=== PATIENT | male | born 1990 | race African-American/Black ===

== ENCOUNTER 2016-10-28 08:25 | Emergency (ER) | payer SELFPAY ==
[2016-10-28 08:37] VITALS: BP 129/55; PULSE 70; TEMP 98; BMI 28.8
--- NOTE | 2016-10-28 08:54 | PDOC ---
History of Present Illness - General Chief Complaint: Back Pain Stated Complaint: LOWER BACK PAIN Time Seen by Provider: 10/28/16 08:34 History Source: Patient Exam Limitations: No Limitations - History of Present Illness Initial Comments: 10/28/16 09:21 Patient came to emergency department complaining of 3 years of low back pain. States was on [employer] and became concerned may have kidney problems. Denies fever , denies pain or burning with urine, denies any bleeding with urine, no history of kidney stones or any urinary problems. Patient states 3 years ago was at the gym and felt by a pulled muscle to his mid low back primary left side and has had persistent and recurrent problems since that time. Has never been evaluated for this pain, has never had numbness or tingling in hands or feet, has never taken any medication for relief of same. 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 and continues to workout at the gym with heavy lifting and weights Occurred: reports: other Severity: reports: mild Pain Location: reports: back Method of Injury: Yes: unknown Modifying Factors: improves with: None Associated Symptoms (Fall): denies symptoms Past History - Travel Traveled outside of the country in the last 30 days: No Close contact w/someone who was outside of country & ill: No - Past Medical History Allergies/Adverse Reactions: Allergies Allergy/AdvReac Type Severity Reaction Status Date / Time No Known Allergies Allergy Verified 10/28/16 08:33 Other medical history: NONE - Psycho/Social/Smoking Cessation Hx Anxiety: No Suicidal Ideation: No Smoking History: Never smoked Hx Alcohol Use: Yes (SOCIAL) Drug/Substance Use Hx: No Substance Use Type: None Trauma Specific PMHX - Complaint Specific PMHX Back Injury: Yes Neck Injury: No Review of Systems - Review of Systems Able to Perform ROS?: Yes Is the patient limited Indonesian proficient: Yes Constitutional: Yes: Symptoms Reported, See HPI, Malaise HEENTM: Yes: See HPI. No: Symptoms Reported Respiratory: No: Symptoms reported Musculoskeletal: Yes: Symptoms Reported, See HPI, Back Pain Integumentary: Yes: See HPI. No: Symptoms Reported Neurological: Yes: See HPI, Weakness. No: Symptoms reported, Headache All Other Systems: Reviewed and Negative *Physical Exam - Vital Signs Last Vital Signs Temp Pulse Resp BP Pulse Ox 98.0 F 70 18 129/55 100 10/28/16 08:26 10/28/16 08:26 10/28/16 08:26 10/28/16 08:26 10/28/16 08:26 - Physical Exam General Appearance: Yes: Nourished, Appropriately Dressed. No: Apparent Distress HEENT: positive: PRISCILA, Normal ENT Inspection, TMs Normal, Pharynx Normal Neck: positive: Supple. negative: Tender Respiratory/Chest: positive: Lungs Clear, Normal Breath Sounds. negative: Chest Tender Gastrointestinal/Abdominal: positive: Soft. negative: Normal Bowel Sounds Musculoskeletal: positive: Normal Inspection. negative: CVA Tenderness, Decreased Range of Motion, Vertebral Tenderness Extremity: positive: Normal Capillary Refill, Normal Inspection. 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 NML intact, Fully Oriented, Alert, Normal Mood/ Affect, Normal Response, Motor Strength /5 Progress Note - Progress Note Progress Note: Mild chronic low back pain, recommend rest, NSAIDs, and follow-up as needed *DC/Admit/Observation/Transfer Diagnosis at time of Disposition: Chronic low back pain Qualifiers: Back pain laterality: left Sciatica presence: without sciatica Qualified Code(s ): M54.5 - Low back pain; G89.29 - Other chronic pain - Discharge Dispostion Disposition: HOME Condition at time of disposition: Stable Admit: No - Referrals Referrals: Bob Arzola MD [Staff Physician] - - Patient Instructions Printed Discharge Instructions: DI for Back Strain or Sprain Additional Instructions: Rest, no heavy lifting or exercise until pain is resolved Hot soaks to neck and low back as often as possible/hot showers or Jacuzzis No massage or therapy until spasm is gone Continue ibuprofen 2-200 mg tablets every 6 hours for the next 3 days then as needed for pain and swelling If not significant improvement within 24 hours with medication and rest regime, followup with private physician for change in medications and /or therapy. - Post Discharge Activity Work/School Note: Back to Work
[2016-10-28] MEDS ORDERED: IBUPROFEN 600 MG TABLET (FP) PO ONE ×2 (09:13→09:17)
== END 2016-10-28 09:50 | disposition home or self-care (01) ==
LOC: JERFT 08:25 → JER 08:25 → JERFT 09:50
DX: M54.5 Low back pain (principal); G89.29 Other chronic pain
CPT/HCPCS: 99281-25